=== PATIENT | male | born 1950 | race Caucasian/White ===

== ENCOUNTER 2018-07-13 01:19 | Outpatient (CLI) | payer MEDICARE, MEDICAID, SELFPAY ==
--- NOTE | 2018-07-13 13:00 | DI.CTLCSR_ITS ---
SYMPTOMS/DIAGNOSIS: SOLITARY PULMONARY NODULE, REPEAT LOW DOSE CT, R91.1, TOBACCO USE, Z72.0, SMOKER, F17.[address] FOR LUNG CANCER SCREENING: Low dose screening exam was performed. Comparison is made with June,. There has been no change in a 4 mm nodule just above the right diaphragm , in the right lower lobe. No new nodules are identified. There are no infiltrates, pleural or pericardial effusions or evidence of adenopathy. The visualized portions of the upper abdomen are unremarkable except for a left renal cyst. IMPRESSION: Benign appearance. Continued annual low dose screening CT is recommended. Lung-RAD Category: 2- Benign Appearance/Behavior Lung- RAD Management of Findings: Continue annual LDCT screening in 12 months
== END 2018-07-13 01:39 ==
PROVIDERS: PCP Family Medicine; Visit Provider Family Medicine
DX: R91.1 Solitary pulmonary nodule (principal); F17.210 Nicotine dependence, cigarettes, uncomplicated; Z12.2 Encounter for screening for malignant neoplasm of respiratory organs
CPT/HCPCS: G0297

== ENCOUNTER 2018-12-10 10:07 | Outpatient (CLI) | payer MEDICARE, MEDICAID, SELFPAY ==
--- NOTE | 2018-12-10 10:01 | DI.RAD_ITS ---
SYMPTOMS/DIAGNOSIS: PAIN PELVIS AND LEFT HIP: Joint space narrowing, articular sclerosis and periarticular hypertrophic spurring are demonstrated. Findings consistent with severe DJD.
== END 2018-12-10 10:27 ==
PROVIDERS: PCP Family Medicine; Visit Provider Orthopaedic Surgery
DX: M16.12 Unilateral primary osteoarthritis, left hip (principal); M25.552 Pain in left hip; Z96.641 Presence of right artificial hip joint; Z96.653 Presence of artificial knee joint, bilateral
CPT/HCPCS: 99213; 73502

== ENCOUNTER 2018-12-23 07:20 | Outpatient (REF) | payer MEDICARE, MEDICAID, SELFPAY ==
[2018-12-23 12:37] LABS: Anion Gap 6.6 mmol/L (3-11); BUN 15 mg/dL (7-18); CO2 28.4 mmol/L (21.0-32.0); CREATININE 1.01 mg/dL (0.70-1.30); Chloride 107 mmol/L (98-107); Glucose 104 mg/dL (70-100); Potassium 4.4 mmol/L (3.5-5.1); Sodium 142 mmol/L (136-145)
[2018-12-23 13:15] LABS: Calcium 9.6 mg/dL (8.5-10.1)
== END 2018-12-23 07:40 ==
LOC: NCHCN 07:20
PROVIDERS: PCP Family Medicine; Visit Provider Family Medicine
DX: R03.0 Elevated blood-pressure reading, without diagnosis of hypertension (principal); E66.9 Obesity, unspecified
CPT/HCPCS: 80048

== ENCOUNTER 2019-05-05 13:49 | Outpatient (CLI) | payer MEDICARE, MEDICAID, SELFPAY ==
--- NOTE | 2019-05-05 13:13 | HPE_ITS ---
Assessment and Plan Assessment and plan (1) Arthritis of left hip: Status: Chronic Assessment and plan: Plan: Patient is a reliable historian and denies any areas of skin breakdown along the left posterior leg. Educated patient that if they develop any lesions, redness or skin breakdown to contact office as skin concerns would be a reason to cancel surgery. Patient gives verbal understanding. Educated patient on surgery covering surgical technique via models, recovery process, benefits and risks including but not limited to risk of infection, blood clot, fracture, numbness/tingling, damage to soft tissue/blood vessels/nerves in detail. After discussion patient gives verbal understanding of risks and elects to proceed with scheduling surgery. Patient had opportunity to have questions answered to their satisfaction. They will contact office if issues arise. Patient will continue to be scheduled for left total hip replacement with Dr. Quiroz. History of Present Illness Narrative: Mr. Patel is a 69-year-old male who presents to clinic for pre- operative visit regarding left AIDE with Dr. Quiroz. Patient has been seeing Dr. Quiroz for years and underwent right AIDE in 2017 that has continued to do well. Reports chronic left hip pain located over the anterior groin. Pain is aggravated with walking and stairs. Reports he has tried to treat pain by taking tylenol and celebrix more recently for his pain; oxycodone 5 mg for the last 20 years for chronic back pain. Pain has become more severe over the past year and wishes to have surgery to maintain his lifestyle. Denies any numbness or tingling. Pertinent Surgical Information Review of patient's right hip replacement by Dr. Quiroz on 10/28/16 states components used were: A 54 millimeter diameter press-fit acetabular shell, a 54 x 36 0-degree or neutral polyethylene liner, a size 7 DePuy stem press-fit with a high off-set and a 36 millimeter diameter ceramic femoral head with a +8.5 millimeter neck. Patient reports that he was diagnosed with Lupus only on his skin. As per patient [place] distance [place] [facility] [place] after a skin biopsy; reports has a cream uses PRN. Denies past medical history of: Hypertension, stroke, cardiac issues, angina, asthma, sleep apnea, renal issues, liver issues, hepatitis, gastrointestinal u lcers, bleeding disorders, seizures, migraines, anxiety, depression, diabetes, thyroid issues Denies prior complications from surgery or anesthesia. Review of Systems Constitutional Constitutional: Denies fever(s), Denies frequent falls and Denies headache(s) Eyes Eyes: Denies change in vision ENT Ears, Nose, Mouth, and Throat: Denies dizziness, Denies ear discharge, Denies headache(s), Denies epistaxis, Denies nasal discharge and Denies sore throat Cardiovascular Cardiovascular: Denies chest pain, Denies rapid heart rate, Denies irregular heart rhythm, Denies palpitations, Denies dyspnea, Denies dyspnea on exertion, Denies orthopnea, Denies paroxysmal nocturnal dyspnea and Denies slow heart rate Respiratory Respiratory: Denies cough, Denies dyspnea, Denies dyspnea on exertion and Denies wheezing Gastrointestinal Gastrointestinal: Denies abdominal pain, Denies melena, Denies hematochezia, Denies constipation, Denies diarrhea, Denies nausea and Denies vomiting Genitourinary Genitourinary: Denies hematuria, Denies dysuria and Denies urinary urgency Musculoskeletal Musculoskeletal: Reports as per HPI, Denies numbness and Denies tingling Neurologic Neurologic: Denies dizziness, Denies frequent falls, Denies headache(s), Denies numbness and Denies tingling Psychiatric Psychiatric: Denies anxiety and Denies depression Endocrine Endocrine: Denies palpitations Allergic/Immunologic Allergic/Immunologic: Denies wheezing [facility] Medical History (Updated 05/05/19 @ 13:45 by Oly Valdivia) Chronic back pain (Chronic) COPD (chronic obstructive pulmonary disease) (Chronic) Gastroesophageal reflux disease Hyperlipidemia (Chronic) Smoker (Chronic) Surgical History (Updated 05/05/19 @ 13:24 by Oly Valdivia) Replacement of total knee joint RIGHT Status post left total knee, cemented (Inactive 09/06/13) Status post right hip replacement (Acute) 2016 Dr. Quiroz Status post tonsillectomy (Acute) at 7 yo Social History (Updated 05/05/19 @ 13:26 by Oly Valdivia) Smoking/Tobacco Use Status: Current every day Drug use: Never Meds Home Medications and Allergies Home Medications Medication Instructions Recorded Confirmed Type omeprazole 20 mg PO DAILY tab-cap 11/12/12 12/10/18 History fluticasone propionate [Flovent 2 puff INHALATION DAILY 07/20/13 12/10/18 History 110MCG] levalbuterol tartrate [Xopenex Hfa] 2 puff INHALATION Q4H PRN 07/20/13 12/10/18 History aspirin [Ecotrin Low Strength] 81 mg PO DAILY 09/02/13 12/10/18 History triamcinolone acetonide 1 ea TOPICAL PRN PRN 02/07/14 10/18/16 History celecoxib [Celebrex] 200 mg PO DAILY tab-cap 08/31/15 12/10/18 History cholecalciferol (vitamin D3) 50,000 unit PO twice a week 09/03/16 12/10/18 History alfuzosin 10 mg PO DAILY tab-cap 12/11/17 12/10/18 History atorvastatin 40 mg PO DAILY tab-cap 12/11/17 12/10/18 History nicotine [Nicotrol] 10 mg INHALATION -12/11/17 History cartridges/day PRN #168 cartridge oxycodone-acetaminophen 5 mg-325 1 tab PO DAILY tab 12/10/18 12/10/18 History mg tablet Allergies Allergy/AdvReac Type Severity Reaction Status Date / Time No Known Allergies Allergy Unverified 05/05/19 13:27 Exam Const General: cooperative and no acute distress [facility] Head: normal to inspection, normocephalic and atraumatic Ears: external ears normal General nose exam: external nose normal and no nasal discharge Face and sinus: face symmetric Mouth: oral mucosae normal, lip normal, tongue normal and moist mucous membranes Teeth and gingiva: dentition normal Throat: posterior oropharynx normal Eyes General: appearance normal, both eyes and all related structures Pupils: PERRL EOM: EOM intact bilaterally Neck Neck: trachea midline Carotids: normal carotid upstroke Lymphatic: no lymphadenopathy noted Resp Effort & Inspection: normal respiratory effort and able to speak in complete sentences Auscultation: clear to auscultation bilaterally, no rales, no rhonchi and no wheezes Cardio Heart Sounds: S1 normal, S2 normal and no murmurs Pulses: radial pulses present bilaterally GI Palpation: soft, no hepatosplenomegaly and nontender Auscultation: normal bowel sounds Skin General skin exam: no rashes or lesions noted
[2019-05-05 14:52] LABS: Abs Immature Grans 0.01 k/cumm (0.0-0.09); Absolute Basophil Count 0.06 k/cumm (0.0-0.2); Absolute Eosinophil Count 0.78 k/cumm (0.0-0.7); Absolute Lymphocyte Count 3.22 k/cumm (1.2-3.4); Absolute Monocyte Count 0.57 k/cumm (0.11-0.7); Absolute Neutrophil Count 3.89 k/cumm (1.2-6.7); Basophils % 0.7; Eosinophils % 9.1; HCT 43.3 % (40.0-50.0); HGB 14.9 g/dL (13.5-17.5); Immature Grans % 0.1; Lymphocytes % 37.7; Mean Corp. HGB Concentration 34.4 g/dL (32.0-36.0); Mean Corpuscular Hemoglobin 29.9 pg (27.0-33.0); Mean Corpuscular Volume 86.8 fL (80-95); Monocytes % 6.7; Neutrophils % 45.7; Platelet Count 181 x1000/uL (130-400); RBC 4.99 m/cumm (4.50-6.00); RBC Distribution Width 13.7 % (11.8-14.1); White Blood Cell Count 8.53 k/cumm (4.4-10.8)
== END 2019-05-05 14:09 ==
PROVIDERS: PCP Family Medicine; Visit Provider Orthopaedic Surgery
DX: M25.552 Pain in left hip (principal); M16.12 Unilateral primary osteoarthritis, left hip; Z01.812 Encounter for preprocedural laboratory examination; Z01.818 Encounter for other preprocedural examination; J44.9 Chronic obstructive pulmonary disease, unspecified; F17.200 Nicotine dependence, unspecified, uncomplicated
CPT/HCPCS: 36415; 86850; 86900; 86901; NC; 85025

== ENCOUNTER 2019-05-10 07:14 | Inpatient (IN) | payer MEDICARE, MEDICAID, SELFPAY ==
[2019-05-10] VITALS (12 sets, daily range): BP systolic 83–162; BP diastolic 48–99; PULSE 59–84; RESP 12–21; TEMP 36.2–36.9; O2SAT 92–99
--- NOTE | 2019-05-10 07:42 | DI.RAD_ITS ---
EXAM: XR PELVIS AP INDICATION: check total hip components in RR. COMPARISON: XR hip LT complete AP pelvis from 12/10/2018 TECHNIQUE: 2D digital imaging was performed. FINDINGS: The images reveal a left hip prosthesis in excellent position, surrounding bone intact.
[2019-05-10] MEDS: Lactated Ringers 1,000 ML 80 ML IV ×2 (10:55→17:47)
--- NOTE | 2019-05-10 13:42 | DI.RAD_ITS ---
EXAM: XR HIP LT IN OR INDICATION: ARTHRITIS LEFT HIP,OA LT HIP TECHNIQUE: 2D digital imaging was performed. FINDINGS: Intraoperative images demonstrate left hip, replacement the prosthesis is in excellent position.
[2019-05-10] MEDS: ceFAZolin 2 GM/50 ML BAG IVPB ×2 (14:03→20:33)
--- NOTE | 2019-05-10 17:47 | DI.VRAD_ITS ---
PROCEDURE INFORMATION: Exam: XR Pelvis Exam date and time: 05/10/2019 5:40 PM Clinical history: 69 years old, male; Other: Check totla hip componets in rr TECHNIQUE: Imaging protocol: XR pelvis. Views: 1 or 2 view. COMPARISON: CR XR HIP LT IN OR 05/10/2019 3:50 PM FINDINGS: Bones/joints: Status post bilateral total hip replacement. Bony and metallic alignment appear anatomic. Surgical jacqueline are present adjacent to the left lateral femur with air in the joint space. Soft tissues: Unremarkable. IMPRESSION: Status post left total hip replacement. Bony and metallic alignment appear anatomic. Dictated and Authenticated by: Robert Carreon MD. Ordering:SARA Schultz MD
[2019-05-10] MEDS: oxyCODONE-CR 10 MG TABCR PO (19:29)
[2019-05-10] MEDS: POTASSIUM CHLORIDE/0.9% NACL 1,000 ML 150 MEQ IV (19:29)
[2019-05-10] MEDS: MORPHine 10 MG/ML VIAL IVP (19:30)
[2019-05-10] MEDS: Docusate Sodium 100 MG CAP PO (19:30)
--- NOTE | 2019-05-10 19:39 | NUR.NOTE ---
Nursing Note: Pt arrived from PACU 1825 via bed. Vss, A&O x 4, Sitting up in bed eating dinner within minuets of arrival.
[2019-05-10] MEDS: Ketorolac 30 MG/ML VIAL IVP (22:46)
[2019-05-10] MEDS: Normal Saline Flush 10 ML SYR IV (22:46)
[2019-05-11] MEDS: ceFAZolin 2 GM/50 ML BAG IVPB ×3 (01:34→14:14)
[2019-05-11] MEDS: Acetaminophen 325 MG TAB 650 MG PO (01:34)
[2019-05-11] MEDS: POTASSIUM CHLORIDE/0.9% NACL 1,000 ML 150 MEQ IV ×2 (01:39→08:24)
[2019-05-11] MEDS: Normal Saline Flush 10 ML SYR IV ×3 (04:19→21:30)
[2019-05-11] MEDS: Ketorolac 30 MG/ML VIAL IVP ×4 (04:19→21:31)
[2019-05-11 04:57] VITALS: BP 123/68; PULSE 69; RESP 18; TEMP 36.2; O2SAT 95
[2019-05-11 06:51] LABS: HCT 35.5 % (40.0-50.0); HGB 12.1 g/dL (13.5-17.5); Mean Corp. HGB Concentration 34.1 g/dL (32.0-36.0); Mean Corpuscular Hemoglobin 30.1 pg (27.0-33.0); Mean Corpuscular Volume 88.3 fL (80-95); Mean Platelet Volume 11.5 fL (8.0-11.0); Platelet Count 163 x1000/uL (130-400); RBC 4.02 m/cumm (4.50-6.00); RBC Distribution Width 13.3 % (11.8-14.1); White Blood Cell Count 17.34 k/cumm (4.4-10.8)
[2019-05-11 07:10] VITALS: BP 126/74; PULSE 69; RESP 18; TEMP 37.3; O2SAT 98
[2019-05-11] MEDS: Atorvastatin 40 MG TAB PO (08:18)
[2019-05-11] MEDS: Docusate Sodium 100 MG CAP PO ×3 (08:19→19:37)
[2019-05-11] MEDS: HYDROcodone 5/Acetaminophen 325 TAB PO ×2 (08:19→14:14)
[2019-05-11] MEDS: Aspirin E.C. 81 MG TABEC PO (08:20)
[2019-05-11] MEDS: Multivitamin w/Minerals TAB 1 TAB PO (08:20)
[2019-05-11] MEDS: oxyCODONE-CR 10 MG TABCR PO ×2 (08:20→19:37)
[2019-05-11] MEDS: Pantoprazole 40 MG TABCR PO (08:20)
[2019-05-11] MEDS: Mometasone 220 MCG 14 DOSE INHALER 1 PUFF IH (08:26)
[2019-05-11] MEDS: Mylanta Suspension 30 ML CUP PO (11:41)
[2019-05-11 12:16] VITALS: BP 107/66; PULSE 74; RESP 14; TEMP 37.4; O2SAT 94
[2019-05-11 15:44] VITALS: BP 124/67; PULSE 74; RESP 18; TEMP 36.8; O2SAT 95
--- NOTE | 2019-05-11 16:17 | PT.INTREAT ---
Date of service: 05/11/19 Time of Service: 16:17 PT Notes Inpatient Physical Therapy Treatment Note [facility] Date: 05/11/19 PRECAUTIONS: Fall, WBAT L SUBJECTIVE: Freddie is agreeable to participating in PT. He indicates that he would like to be discharged to home tomorrow. OBJECTIVE: PAIN: Patient c/o posterior hip soreness with transfers and gait training BED MOBILITY/TRANSFERS Supine-sit: I with HOB flat Sit-supine: I with HOB flat Sit-stand: S Stand-sit: S Bed-Chair: S GAIT Assistive Device: FWW Weight bearing: WBAT L Assist: S Distance: 300' Deviation: Step-through, appropriate pacing THEREX: Patient completed a LE strengthening and stabilization program, in a supine position, as per flow sheet. STAIRS: Up/down 3x4 and 2x6 using 1 rail/SPC and a step-to pattern with supervision ASSESSMENT: Patient toelrated session well with minimal c/o L posterior hip soreness with transfers and gait training. He was able to tolerate a progression in gait training, with FWW support and supervision. PLAN: Continue with PT's POC TREATMENT CODE/TIME: 40 minutes; 71079 x2, 11339
--- NOTE | 2019-05-11 16:53 | PGE_ITS ---
Date of Service Date of service: 05/11/19 Time of Service: 16:54 Assessment and Plan Assessment and plan (1) Status post total hip replacement, left: Status: Acute Assessment and plan: Assessment: Stable postop day #1 left total hip replacement. In terms of his mobility, he should be able to go home tomorrow based on what he did today. As long as his pain remains under good control and his hemoglobin does not drop he should be good go tomorrow. Plan: DC his Parra. Check his hemoglobin tomorrow. If he is having no problems I will send him home tomorrow. Subjective Subjective Interval history since last seen: Mauricio feels very good today. Pain is under good control. He insists that he wants to go home tomorrow afternoon around noontime. He says when he first got out of bed today he walked from his room to PT and walked on the couple stairs that they have there. Exam Narrative Exam Narrative: He is afebrile vital signs are stable. Hemoglobin is 12.1 g t his morning. I and O's are good. Parra is in place and draining. He has good active ankle dorsiflexion. He has normal sensation and circulation to the left foot. Objective Objective Clinical Data: Abnormal lab results 05/11/19 Range/Units 06:10 WBC 17.34 H (4.4-10.8) k/cumm RBC 4.02 L (4.50-6.00) m/cumm Hgb 12.1 L (13.5-17.5) g/dL Hct 35.5 L (40.0-50.0) % MPV 11.5 H (8.0-11.0) fL Vital Signs Temperature 36.8 C 05/11/19 15:44 Temperature Source Tympanic 05/11/19 15:44 Pulse 74 05/11/19 15:44 Pulse Rhythm Regular 05/11/19 11:31 Respiratory Rate 18 05/11/19 15:44 Respiratory Effort Non-Labored 05/11/19 11:31 Respiratory Depth Normal 05/11/19 11:31 Respiratory Pattern Normal 05/11/19 11:31 Blood Pressure 124/67 05/11/19 15:44 Pulse Oximetry 95 05/11/19 15:44 Respiratory End-tidal CO2 38 05/10/19 18:04 Oxygen Delivery Method Room Air 05/11/19 15:44 Oxygen Flow Rate 0 05/11/19 15:44 Pain Level 7 05/11/19 16:05 Comment 05/11/19 07:10 Intake & Output 05/10/19 05/11/19 05/11/19 23:59 11:59 23:59 Intake Total 1782 / 1782 2385 / 2625 240 / 2625 Output Total 1075 / 1075 350 / 1125 775 / 1125 Balance 707 / 707 2035 / 1500 -535 / 1500 Intake: IV 1162 / 1162 2024 / 2024 Oral 620 / 620 360 / 600 240 / 600 Output: Urine 375 / 375 350 / 1125 775 / 1125 Estimated Blood Loss 700 / 700 Other: Urine Color Dark Kimberly Straw Light Kimberly Urine Appearance Clear Clear Clear Urine Odor None Comment verbal order for d/c given by Emesis Description None Voiding Methods Indwelling Catheter Laboratory Results WBC 17.34 k/cumm (4.4-10.8) H 05/11/19 06:10 RBC 4.02 m/cumm (4.50-6.00) L 05/11/19 06:10 Hgb 12.1 g/dL (13.5-17.5) L 05/11/19 06:10 Hct 35.5 % (40.0-50.0) L 05/11/19 06:10 MCV 88.3 fL (80-95) 05/11/19 06:10 MCH 30.1 pg (27.0-33.0) 05/11/19 06:10 MCHC 34.1 g/dL (32.0-36.0) 05/11/19 06:10 RDW 13.3 % (11.8-14.1) 05/11/19 06:10 Plt Count 163 x1000/uL (130-400) 05/11/19 06:10 MPV 11.5 fL (8.0-11.0) H 05/11/19 06:10
--- NOTE | 2019-05-11 17:00 | PT.INIE ---
Date of service: 05/11/19 Time of Service: 09:54 PT Notes Inpatient Physical Therapy Evaluation Date: 05/11/2019 Referring Doctor: Antoine Quiroz MD PT Orders: PT Consult: Mobilize post op R THR. Get OOB this afternoon. Weight bearing as tolerated R. Total hip precautions R. Precautions: WBAT R LE. Posterior total hip precautions om L side. PATIENT PROFILE/ADMITTING DIAGNOSIS: Patient is a 66-year-old male patient is a S/P left posterior total hip arthroplasty by Dr. Quiroz on 05/10/2019. PMHX: Medical History (Updated 05/05/19 @ 13:45 by Oly Valdivia) Chronic back pain (Chronic) COPD (chronic obstructive pulmonary disease) (Chronic) Gastroesophageal reflux disease Hyperlipidemia (Chronic) Smoker (Chronic) Surgical History (Updated 05/05/19 @ 13:24 by Oly Valdivia) Replacement of total knee joint on R Status post left total knee, cemented (Inactive 09/06/13) Status post right hip replacement (Acute) 2016 Dr. Quiroz Status post tonsillectomy (Acute) at 7 yo Social History/Home Situation: Lives in a house with 2 steps and railing to enter, flight of steps to the basement he does not use. Lives with significant other Ceceila Melendez who is an RN. Baseline mobility independent gait with no device, independent with ADLS. Equipment owned/DME: Cane, FWW SUBJECTIVE: Patient lying in bed upon arrival of this PT and student PT. Patient denies headache, dizziness, and chest pain throughout PT session. No report of pain but did complain of mild ache on operated site with level surface ambulation and stair negotiation that subsided with rest. OBJECTIVE: General Observation: IV L UE, vazquez catheter, surgical dressing on L hip. Mental Status: A& O x4 Pain: Complained of mild pain with weight bearing ROM: Right Upper Extremity: Shoulder Flexion WFL. Shoulder abduction WFL. Elbow flexion WFL. Wrist flexion WFL. Functional opening and closing of hand WFL. Left Upper Extremity: Shoulder Flexion WFL. Shoulder abduction WFL. Elbow flexion WFL. Wrist flexion WFL. Functional opening and closing of hand WFL. Right Lower Extremity: Hip flexion WFL. Hip abduction WFL. Knee flexion WFL. Ankle dorsiflexion WFL. Ankle plantarflexion WFL. Left Lower Extremity: Hip flexion WFL. Hip abduction WFL. Knee flexion WFL. Ankle dorsiflexion WFL. Ankle plantarflexion WFL. STRENGTH: Right Upper Extremity: Shoulder flexors 5/5. Shoulder abductors 5/5. Elbow flexors 5/5. Elbow extensors 5/5. Pleating Machine Operator strong. Left Upper Extremity: Shoulder flexors 5/5. Shoulder abductors 5/5. Elbow flexors 5/5. Elbow extensors 5/5. Pleating Machine Operator strong. Right Lower Extremity: Hip flexors 5/5. Hip abductors 5/5. Knee flexors 5/5. Knee extensors 5/5. Ankle dorsiflexors 5/5. Ankle plantarflexors 5/5. Left Lower Extremity:Hip flexors NT due to hip precautions. Hip abductors /5. Knee flexors 4/5. Knee extensors 4/5. Ankle dorsiflexors 5/5. Ankle plantarflexors 5/5. BED MOBILITY/TRANSFERS: Supine-sit: Supervision Sit-stand: Supervision Stand-sit: Supervision Bed-chair: Supervision GAIT: SBA with FWW 45 ft x 2, WBATL LE. Step through gait pattern with steady stride and margie. Patient also negotiated three 4 inch steps and two 6 inch steps while holding onto one rail with a step to gait pattern requiring only contact guard assist without complaints of dizziness. No LOB observed. BALANCE: Static sitting: Normal Dynamic Sitting: Normal Static Standing: Good Dynamic Standing: fair SPECIAL TESTS: Mobility Limitations Standardized Measure [facility] AM -PAC ?6 clicks? Basic Mobility Inpatient Short Form: Raw score: 17 CMS score: 51% deficit INFORMED CONSENT/EDUCATION: Patient was instructed in purpose of PT consult and plan of care and is in agreement with plan. ASSESSMENT: Patient is a 66-year-old male patient is a S/P left posterior total hip arthroplasty by Dr. Quiroz on 05/10/2019. Patient presents with clinical signs and symptoms consistent with current/admitting diagnoses that have resulted to mobility limitations, gait instability, generalized weakness, and impairment of motor control as demonstrated by the following impairment level findings: 1. Decreased strength to B LE major muscle groups 2. Impaired sitting/standing balance 3. Impaired activity tolerance 4. Limitation of joint range of motion in L hip Impairments are contributing to the following functional limitations: 1. Dependent bed mobility skills 2. Increased dependence with transfers 3. Inability to safely ambulate without assistive device and physical assistance 4. Increase completion time for mobility ADL performance 5. Increased fall risk 6. Inability to negotiate steps alone safely Patient is assessed as a 89176 complexity based on the following: History: Past medical history significant for COPD, hypertension, and hyperlipidemia Examination:Demonstrable impairment in strength, balance, and range of motion with underlying impairments and functional limitations as documented above Presentation: Evolving Decision Makin moderate complexity GOALS Goals X1 week 1. Supine-Sit independent 2. Sit-Supine independent 3. Sit-Stand independent 4. Stand-Sit independent 5. Bed-Chair independent 6. Chair-Bed independent 7. Independent gait on level surface with use of least restrictive device for at least 300 feet without report of pain nor dyspnea 8. Independent stair negotiation while holding onto bilateral rails for at least 10 steps without report of pain nor dyspnea 9. Independent with home exercise program 10. Good static and dynamic standing balance/tolerance PLAN OF CARE/TREATMENT PLAN: 1-2x/day, 7 days/ week x 1 week Plan of care has been reviewed with the STRUCTURAL ANALYST providing the service under Physical therapy direction. Initiate physical therapy intervention for strengthening, bed mobility, transfers, gait, stairs, balance training, use of assistive device, posterior total hip precautions and home exercise program DISCHARGE RECOMMENDATIONS Patient will benefit from home health PT services in order to progress mobility level using least restrictive assistive ambulatory device, assess home safety, identify additional equipment needs, and establish a functional maintenance program that will increase ability of patient to remain at home. TREATMENT TIME/MINUTES/CODES: 56102 x 36 minutes beginning at 9:54 AM. Thank you very much for this referral. Amelie Flynn PT, DPT, CLT [facility]
[2019-05-11] MEDS: Enoxaparin 40 MG/0.4 ML SYR SC (17:02)
--- NOTE | 2019-05-11 17:10 | ROE_ITS ---
DATE OF PROCEDURE: May 10, 2019 PREOPERATIVE DIAGNOSIS: Osteoarthritis left hip. POSTOPERATIVE DIAGNOSIS: Osteoarthritis left hip. PROCEDURE: Left total hip arthroplasty. COMPONENTS USED: 1. Size 6 DePuy stem. 2. 54 mm acetabular shell. 3. 54 x 36 neutral acetabular polyethylene liner. 4. 36, +8.5 ceramic femoral head. ANESTHESIA: General, Khoa Nieves CRNA SURGEON: Antoine Quiroz M.D. CAP INSPECTOR: Rhett Lackey ESTIMATED BLOOD LOSS: 700 cc's INDICATIONS: This is 69-year-old white male with progressive loss of mobility and increasing pain du e to osteoarthritis of his left hip. He has previously had a successful right total hip replacement two years ago. He's had successful bilateral total knee replacements as well. He has reached the [facility] where he cannot function with activities of daily living because of his left hip pain. Total hip arthroplasty was recommended to alleviate his pain and hopefully restore some of his previous ambula tory abilities. The risks and complications of the procedure have been explained to the patient in d etail preoperatively. PROCEDURE: The patient was taken to the Operating Room on 05/10/19. He was placed supine on the oper ating table and a general anesthetic was administered. He was then turned to the left lateral positi on on the operating table and the position was maintained with a pneumatic beanbag. The left hip was then prepped and draped free in the usual sterile fashion. A posterolateral incision was made, centered over the greater trochanter. The incision was carried t hrough the skin and subcu to the fascia. Subcutaneous veins were cauterized. The iliotibial band an d gluteus fascia were then incised in line with the skin incision. Charnley self-retaining retractor was inserted. The piriformis tendon was identified; a tag suture was placed on the tendon and the t endon was released from the posterior femoral neck with electrocautery. The remainder of the short e xternal rotators was then removed from the posterior femoral neck with electrocautery. A capsular in cision was made as far anterior as possible so that a posterior capsular flap would be available for closure. The femoral head was dislocated. The femoral neck was resected at appropriate angle and le chris, determined by templating, using the oscillating saw. The acetabular exposure was then improved by excising the anterior capsule and then releasing it from the anterior rim of the acetabulum with c urved osteotomes. A large posterior retractor was inserted on the acetabulum to retract the femoral neck. Another posterior retractor was placed to improve exposure. Serial reaming was then carried o ut until there was good rim contact on the acetabulum with a 54 reamer. A 54 mm acetabular shell, po ronald-coated, was then impacted into the prepared acetabulum until fully seated. An excellent press f it was obtained. The press fit was supplemented by one screw through the acetabulum. The center hol e in the acetabular shell was filled with a so-called manhole cover. The actual liner, 36 x 54, was then placed in the acetabular shell, rotated into alignment and then impacted into place with the imp actor and mallet. The femoral canal was then serially reamed with straight reamers up to a size 6. The canal was then serially broached. I could fit a size 6 broach; however when I attempted to broach with a size 7, th e broach remained proud by probably an inch and a half. I therefore inserted the 6 broach as a trial and used trial with a high-offset head and a +8.5 trial 36 head. The trial component was then reduc ed into the acetabular component and an intraoperative AP x-ray was obtained. The x-ray showed that limb lengths were maintained with a +8.5 and the acetabular shell appeared to be in good position an d there was good fit and fill in the femoral canal with a size 6 broach. The trial components were t hen dislocated from the acetabulum and then removed. An actual size 6 stem, proximal, porous-coated, was then impacted into place. Care was taken to position the femoral component in proper anteversio n until it was fully seated. There was an excellent press fit obtained with no motion of the stem. A 36, +8.5 ceramic femoral head was then placed onto the trunion of the stem and impacted into place with the impactor and mallet. The femoral component was reduced into the acetabulum. Range of motio n was checked at this point. The hip was stable to 90 degrees of flexion and at least 80 degrees of internal rotation. It was also stable with external rotation in extension. The left thigh was abduc eduard and placed on a Deal stand. The wound was irrigated with tranexamic acid, 2 grams in 150 cc's of saline solution. It was allowed to stay in the wound for a minute before suctioning. The patient r eceived an additional 2 grams of tranexamic acid IV before making the incision. The wound was then i rrigated with Betadine and saline solution. I allowed the Betadine to stay in the wound for 60 secon ds before suctioning. The wound margins were infiltrated with 0.5% Marcaine with an epinephrine solu tion. Good hemostasis was obtained at the conclusion of the procedure. All obvious bleeders were ca uterized. Two drill holes were placed on the posterior greater trochanter and sutures of #2 FiberWir e were passed to the leading edge of the posterior capsular flap and they were passed through these d rill holes and sutures were tied over the drill holes with the hip externally rotated, bringing the p osterior capsular flap down to bone. The piriformis tendon was then reattached to the abductor tendo n at the tip of the trochanter with interrupted #2 FiberWire sutures. The iliotibial band and gluteu s fascia were approximated with interrupted [id number] sutures of #1 Vicryl suture material. Th e subcu was approximated with interrupted #2-0 Vicryl sutures. The skin edges were approximated with skin jacqueline. Sterile dressings were applied, followed by a light compressive dressing to the left lateral hip. The patient was turned supine, an abductor pillow was placed between his legs and he wa s transferred to the recovery room in good condition. The patient experienced no intraoperative comp lications.
--- NOTE | 2019-05-11 18:12 | PDOC.CMIN ---
- If Service Date Differs Date of service: 05/11/19 Time of Service: 18:12 Care Management Initial Assess REASON FOR HOSPITALIZATION:: Post Op Left Total Hip PAST MEDICAL HISTORY/PAST SURGICAL HISTORY:: Medical History. Chronic back pain (Chronic). COPD (chronic obstructive pulmonary disease) (Chronic). Gastroesophageal reflux disease. Hyperlipidemia (Chronic). Smoker (Chronic). Surgical History. Replacement of total knee joint. RIGHT. Status post left total knee, cemented (Inactive 09/06/13). Status post right hip replacement (Acute). 2017. Dr. Quiroz. Status post tonsillectomy (Acute). at 7 yo PREVIOUS FUNCTIONAL STATUS/SOCIAL/FAMILY SUPPORTS:: Mauricio lives in [place] with his significant other, Cecelia, who is a nurse. 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 He is independent at baseline. CURRENT FUNCTIONAL STATUS:: Mauricio was lying in bed during the conversation with CM. He stated that he has very little pain. He reported that he has worked with PT, and that he has five stairs at home that he needs to maneuver. He stated that he has had both knees replaced and the other hip replaced, so he is familiar with the recovery. He requested crutches and HH PT. CM will follow. ADVANCE DIRECTIVES:: None on file. Has patient been provided with information about the portal?: Yes Did the patient sign up for the portal?: No CODE STATUS:: Full Code INSURANCE COVERAGE / FINANCIAL ISSUES:: [facility] CURRENT HOME/COMMUNITY SERVICES/EQUIPMENT:: Mauricio has a FWW at home from previous surgeries. No other services at this time. PRIMARY CARE PHYSICIAN:: Lizeth Spain POTENTIAL DISCHARGE NEEDS:: Evaluations for further needs, follow up appointments. Home Health PT and crutches were requested by Mauricio. PATIENT/FAMILY EDUCATION NEEDS:: Review of community based supports, discharge plan, discussion of self care needs including Ask Me Three ANTICIPATED BARRIERS TO DISCHARGE:: None identified at this time. TRANSPORTATION:: Mauricio will be transported home via private vehicle driven by his SO, Cecelia. PLAN:: Anticipate Mauricio will return home when medically ready. PT to evaluate for crutches as well as need for HH PT. Mauricio's SO Cecelia will drive him home when ready. CM will follow.
[2019-05-11 20:06] VITALS: BP 145/73; PULSE 72; RESP 17; TEMP 37.2; O2SAT 96
[2019-05-12] VITALS: BP 123/77; PULSE 78; RESP 16; TEMP 37.5; O2SAT 93
[2019-05-12 05:00] VITALS: PULSE 78; RESP 16; TEMP 36.6; O2SAT 97
[2019-05-12] MEDS: Normal Saline Flush 10 ML SYR IV (05:04)
[2019-05-12] MEDS: Ketorolac 30 MG/ML VIAL IVP (05:04)
[2019-05-12] MEDS: HYDROcodone 5/Acetaminophen 325 TAB PO ×2 (06:21→11:59)
[2019-05-12 07:14] LABS: HGB 11.9 g/dL (13.5-17.5); Mean Corpuscular Volume 88.2 fL (80-95); Mean Platelet Volume 11.5 fL (8.0-11.0); Platelet Count 151 x1000/uL (130-400); RBC 3.97 m/cumm (4.50-6.00); RBC Distribution Width 13.7 % (11.8-14.1); White Blood Cell Count 11.76 k/cumm (4.4-10.8)
[2019-05-12 07:44] VITALS: BP 109/65; PULSE 70; RESP 18; TEMP 38.1; O2SAT 97
[2019-05-12] MEDS: Atorvastatin 40 MG TAB PO (08:17)
[2019-05-12] MEDS: Docusate Sodium 100 MG CAP PO (08:17)
[2019-05-12] MEDS: oxyCODONE-CR 10 MG TABCR PO (08:17)
[2019-05-12] MEDS: Multivitamin w/Minerals TAB 1 TAB PO (08:17)
[2019-05-12] MEDS: Pantoprazole 40 MG TABCR PO (08:17)
[2019-05-12] MEDS: Aspirin E.C. 81 MG TABEC PO (08:17)
--- NOTE | 2019-05-12 08:33 | DSE_ITS ---
Date of service: 05/12/19 Time of Service: 08:34 DS: Diagnosis Discharge Diagnosis (1) Status post total hip replacement, left: Status: Acute Discharge Plan Disposition Patient Disposition: HOME Condition: Good Discharge Details Reason For Visit: POST-OP L TOTAL HIP Admit Date/Time: 05/10/19 07:14 Admit Provider: Antoine Quiroz Attending Provider: Antoine Quiroz Primary Care Provider: Lizeth Spain [facility] Course Hospital Course: The patient was taken to the operating room on the day of admission 05/10/2019 where he underwent a left total hip replacement without complications. Postoperatively he was mobilized per protocol with physical therapy. He achieved a full independence with transfers and climbing stairs by 05/12/2019. He remained afebrile throughout his postoperative course. Hemoglobin stabilized at 11.9 g on 05/12/2019. By 05/12/2019 he was taking only p.o. pain meds with good control. He wished to be discharged home at that time. I felt that he had achieved all acute care goals and was ready for discharge. Home Meds and New Rx's Prescriptions: New oxycodone-acetaminophen 5-325 mg tablet 1 tab PO Q4H PRN (Reason: pain) Qty: 20 RF: 0 celecoxib 200 mg capsule 200 mg PO BID Qty: 30 RF: 0 No Action oxycodone-acetaminophen [Percocet] 5-325 mg tablet 1 tab PO DAILY RF: 0 omeprazole 20 MG capsule,delayed release(DR/EC) 20 mg PO DAILY RF: 0 celecoxib [Celebrex] 200 MG capsule 200 mg PO DAILY RF: 0 cholecalciferol (vitamin D3) 50,000 UNIT capsule 50,000 unit PO DAILY RF: 0 Nicotrol 10 MG cartridge 10 mg Inhalation 6-16 cartridges/day PRNQty: 168 RF: 0 atorvastatin 40 MG tablet 40 mg PO DAILY RF: 0 alfuzosin 10 MG tablet extended release 24 hr 10 mg PO DAILY RF: 0 Flovent HFA 120 PUFF HFA aerosol inhaler 2 puff Inhalation DAILY RF: 0 levalbuterol tartrate [Xopenex HFA] 15 GM HFA aerosol inhaler 2 puff Inhalation Q4H PRNRF: 0 aspirin [Ecotrin Low Strength] 81 MG tablet,delayed release (DR/EC) 81 mg PO DAILY RF: 0 triamcinolone acetonide 15 GM cream 1 ea Topical PRN PRNRF: 0 naproxen sodium [Aleve] 220 mg Capsule 220 mg PO DAILY RF: 0 betamethasone dipropionate 0.05 % Cream TOPICAL RF: 0 Discharge Instructions Additional Instructions: Walk every day as much as pain allows. Use crutches or walker as long as you limp. Use elastic stockings during the daytime only for the next 2 weeks. Take 1 baby aspirin(81 mg) twice a day for 30 days to prevent blood clots in the legs. May shower and get the jacqueline wet tomorrow. Cover the jacqueline with light gauze after showering so the jacqueline do not catch on your hands. Follow total hip precautions for the next 6 weeks. Take Celebrex that was prescribed 200 mg twice a day for 15 days to decrease swelling and inflammation. Take oxycodone for breakthrough pain if needed. Follow-up with Dr. Quiroz in 2 weeks. Total hip precautions instruction sheet. Stand Alone Forms: Consent for a Minor Procedure Referrals: Antoine Quiroz MD [ [facility] STAFF PHYSICIAN] - (f/u in 2 weeks.) Activity:: total hip precautions Equipment/Supplies:: Walker Diet:: As Tolerated Discharge Orders Discharge Orders: Discharge Order (Routine); Ordered 05/12/19 Ordered By: Antoine Quiroz DS: Summary Status at Discharge Functional status at discharge: independent ambulation Overall status at discharge: patient is back to baseline Mental Status: mental status grossly normal Speech and Movement: speech and movement normal Mood: congruent mood Affect: normal affect Exam Psych Mental Status: mental status grossly normal Speech and Movement: speech and movement normal Mood: congruent mood Affect: normal affect DS: Data Vitals/I&O Vitals and I&O: Vital Signs Temperature 36.6 C 05/12/19 05:00 Temperature Source Tympanic 05/12/19 05:00 Pulse 78 05/12/19 05:00 Pulse Rhythm Regular 05/11/19 20:09 Respiratory Rate 16 05/12/19 05:00 Respiratory Effort Non-Labored 05/12/19 03:00 Respiratory Depth Normal 05/12/19 03:00 Respiratory Pattern Normal 05/12/19 03:00 Blood Pressure 123/77 05/12/19 00:00 Pulse Oximetry 97 05/12/19 05:00 Respiratory End-tidal CO2 38 05/10/19 18:04 Oxygen Delivery Method Room Air 05/12/19 05:00 Oxygen Flow Rate 0 05/12/19 05:00 Pain Level 7 05/12/19 08:17 Comment 05/11/19 07:10 Intake & Output 05/11/19 05/11/19 05/12/19 11:59 23:59 11:59 Intake Total 3300 / 4090 790 / 4090 250 / 250 Output Total 350 / 1500 1150 / 1500 500 / 500 Balance 2950 / 2590 -360 / 2590 -250 / -250 Intake: IV 2940 / 3000 60 / 3000 Oral 360 / 1090 730 / 1090 250 / 250 Output: Urine 350 / 1500 1150 / 1500 500 / 500 Other: Urine Color Straw Light Kimberly Urine Appearance Clear Clear Urine Odor None Comment verbal order for d/c given by MD Voiding Methods Urinal Urinal Data Completed and Pending Labs on day of discharge: Labs from last 24 hours 05/12/19 06:37 WBC 11.76 H D RBC 3.97 L Hgb 11.9 L Hct 35.0 L MCV 88.2 MCH 30.0 MCHC 34.0 RDW 13.7 Plt Count 151 MPV 11.5 H PFSH Medical History (Updated 05/10/19 @ 10:10 by Richelle Dubois) Chronic back pain (Chronic) COPD (chronic obstructive pulmonary disease) (Chronic) Gastroesophageal reflux disease Hyperlipidemia (Chronic) Lupus (Acute) pt. reports it affects his skin only Smoker (Chronic) Surgical History (Updated 05/11/19 @ 16:56 by Antoine Quiroz MD) Hx of colonoscopy (Chronic) Hx of esophagogastroduodenoscopy (Chronic) Replacement of total knee joint RIGHT Status post left total knee, cemented (Inactive 09/06/13) Status post right hip replacement (Acute) 2016 Dr. 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
[2019-05-12 09:18] VITALS: TEMP 37.8
[2019-05-12] MEDS: Mometasone 220 MCG 14 DOSE INHALER 1 PUFF IH (10:30)
--- NOTE | 2019-05-12 10:43 | PT.INTREAT ---
Date of service: 05/12/19 Time of Service: 10:43 PT Notes Inpatient Physical Therapy Treatment Note [facility] Date: 05/12/19 PRECAUTIONS: WBAT L SUBJECTIVE: Freddie states that he is feeling pretty good and is ready to discharge to home today. He states that he has been up, transferring and ambulating independently within his room. OBJECTIVE: PAIN: No c/o pain BED MOBILITY/TRANSFERS Sit-stand: I Stand-sit: I GAIT Assistive Device: FWW Weight bearing: WBAT L Assist: S Distance: 300' Deviation: Step-through THEREX: Patient completed a LE strengthening program, in both seated and standing positions, as per flow sheet. STAIRS: Up/down 3x4 and 2x6 using 1 rail/SPC and a step-to pattern with supervision ASSESSMENT: Patient tolerated session well without complaint. He was able to tolerate gait training, stair training, and ther ex without complaint of pain. PLAN: Continue with PT's POC TREATMENT CODE/TIME: 25 minutes; [id number], [id number]
[2019-05-12 11:35] VITALS: BP 129/82; PULSE 74; RESP 17; TEMP 37.4; O2SAT 96
--- NOTE | 2019-05-12 14:58 | CHAPLAIN ---
I had a short visit with Mauricio who is being discharged later today to his home in [place]. Mauricio said he has had both knees replaced and this is his second hip replacement so he knew what he was getting into. He expects to be feeling stronger and more pain-free after getting through the recovery process.
--- NOTE | 2019-05-12 16:05 | PDOC.CMDIS ---
- If Service Date Differs Date of service: 05/12/19 Time of Service: 16:05 LACE Index Scoring Tool - Questions: Length of Stay (in days): 3 Acuity (Admit via E.D.?): No Comorbidities: Chronic Pulmonary Disease E.D. Visits: 0 - Answers: Total Score: 5 Risk of Readmission: Low Risk Care Management Discharge Reason for Hospitalization: Post Op Left Total Hip Discharge Plan: Mauricio will return home with no additional services at this time. He has his own FWW. Follow up with Dr. Quiroz in two weeks. He will be transported home via private vehicle by his SO, Cecelia. Patient/Family Education Needs: Review discharge instructions regarding medication and activity levels, discussion of self care needs including 'ask me three'
--- NOTE | 2019-05-12 16:08 | PT.INDS ---
Date of service: 05/12/19 Time of Service: 16:09 PT Notes Inpatient Physical Therapy Discharge Summary Dates: 05/12/2019 Dates of Service: 05/11/2019 and 05/12/2019 This is a clinical summary of care provided on the duration of dates listed above. No charge was made in the completion of this documentation. Referring Doctor: Antoine Quiroz MD PT Orders: PT Consult: Mobilize post op R THR. Get OOB this afternoon. Weight bearing as tolerated R. Total hip precautions R. Precautions: WBAT R LE. Posterior total hip precautions om L side. PATIENT PROFILE/ADMITTING DIAGNOSIS: Patient is a 66-year-old male patient is a S/P left posterior total hip arthroplasty by Dr. Quiroz on 05/10/2019. PMHX: Medical History (Updated 05/05/19 @ 13:45 by Oly Valdivia) Chronic back pain (Chronic) COPD (chronic obstructive pulmonary disease) (Chronic) Gastroesophageal reflux disease Hyperlipidemia (Chronic) Smoker (Chronic) Surgical History (Updated 05/05/19 @ 13:24 by Oly Valdivia) Replacement of total knee joint on R Status post left total knee, cemented (Inactive 09/06/13) Status post right hip replacement (Acute) 2016 Dr. Quiroz Status post tonsillectomy (Acute) at 7 yo Social History/Home Situation: Lives in a house with 2 steps and railing to enter, flight of steps to the basement he does not use. Lives with significant other Cecelia Melendez who is an RN. Baseline mobility independent gait with no device, independent with ADLS. Equipment owned/DME: Cane, FWW SUBJECTIVE: NT. Please see PT notes on 05/12/2019. OBJECTIVE: General Observation: NT. Please see PT notes on 05/12/2019. Mental Status: NT. Please see PT notes on 05/12/2019. Pain: NT. Please see PT notes on 05/12/2019. ROM: Right Upper Extremity: Shoulder Flexion WFL. Shoulder abduction WFL. Elbow flexion WFL. Wrist flexion WFL. Functional opening and closing of hand WFL. Left Upper Extremity: Shoulder Flexion WFL. Shoulder abduction WFL. Elbow flexion WFL. Wrist flexion WFL. Functional opening and closing of hand WFL. Right Lower Extremity: Hip flexion WFL. Hip abduction WFL. Knee flexion WFL. Ankle dorsiflexion WFL. Ankle plantarflexion WFL. Left Lower Extremity: Hip flexion WFL. Hip abduction WFL. Knee flexion WFL. Ankle dorsiflexion WFL. Ankle plantarflexion WFL. STRENGTH: Right Upper Extremity: Shoulder flexors 5/5. Shoulder abductors 5/5. Elbow flexors 5/5. Elbow extensors 5/5. Supervisor Electric strong. Left Upper Extremity: Shoulder flexors 5/5. Shoulder abductors 5/5. Elbow flexors 5/5. Elbow extensors 5/5. Supervisor [employer] strong. Right Lower Extremity: Hip flexors 5/5. Hip abductors 5/5. Knee flexors 5/5. Knee extensors 5/5. Ankle dorsiflexors 5/5. Ankle plantarflexors 5/5. Left Lower Extremity:Hip flexors NT due to hip precautions. Hip abductors /5. Knee flexors 4/5. Knee extensors 4/5. Ankle dorsiflexors 5/5. Ankle plantarflexors 5/5. BED MOBILITY/TRANSFERS: Supine-sit: Supervision Sit-stand: Supervision Stand-sit: Supervision Bed-chair: Supervision GAIT: Supervision with level surface ambulation of up to 300 feet using FWW per PT note on 05/12/2019. BALANCE: Static sitting: Normal Dynamic Sitting: Normal Static Standing: Good Dynamic Standing: fair ASSESSMENT: Patient is a 66-year-old male patient is a S/P left posterior total hip arthroplasty by Dr. Quiroz on 05/10/2019. Patient continues to presents with clinical signs and symptoms consistent with current/admitting diagnoses that have resulted to mobility limitations, gait instability, generalized weakness, and impairment of motor control as demonstrated by the following impairment level findings: 1. Decreased strength to B LE major muscle groups 2. Impaired sitting/standing balance 3. Impaired activity tolerance 4. Limitation of joint range of motion in L hip due to continued movement precautions Impairments are contributing to the following functional limitations: 1. Inability to safely ambulate without assistive device and physical assistance 2. Increase completion time for mobility ADL performance 3. Increased fall risk 4. Inability to negotiate steps alone safely GOALS Goals X1 week 1. Supine-Sit independent NOT MET 2. Sit-Supine independent NOT MET 3. Sit-Stand independent NOT MET 4. Stand-Sit independent NOT MET 5. Bed-Chair independent NOT MET 6. Chair-Bed independent NOT MET 7. Independent gait on level surface with use of least restrictive device for at least 300 feet without report of pain nor dyspnea NOT MET 8. Independent stair negotiation while holding onto bilateral rails for at least 10 steps without report of pain nor dyspnea NOT MET 9. Independent with home exercise program NOT MET 10. Good static and dynamic standing balance/tolerance NOT MET DISCHARGE RECOMMENDATIONS: Patient will benefit from home health PT services in order to progress mobility level using least restrictive assistive ambulatory device, assess home safety, identify additional equipment needs, and establish a functional maintenance program that will increase ability of patient to remain at home. TREATMENT TIME/MINUTES/CODES: NC. Thank you very much for this referral. Amelie Flynn PT, DPT, CLT [facility]
== END 2019-05-12 13:57 | disposition home or self-care (01) | DRG 470 ==
LOC: PDS 07:14 → MS 17:04
PROVIDERS: Admitting Provider Orthopaedic Surgery; PCP Family Medicine; Visit Provider Orthopaedic Surgery
PROC: 0SRB04A Replacement of Left Hip Joint with Ceramic on Polyethylene Synthetic Substitute, Uncemented, Open Approach (ICD-10-PCS; CPT 27130; principal; 2019-05-10 09:00)
DX: M16.12 Unilateral primary osteoarthritis, left hip (principal); M25.552 Pain in left hip; Z96.642 Presence of left artificial hip joint; Z96.641 Presence of right artificial hip joint; J44.9 Chronic obstructive pulmonary disease, unspecified; K21.9 Gastro-esophageal reflux disease without esophagitis; E78.5 Hyperlipidemia, unspecified; F17.210 Nicotine dependence, cigarettes, uncomplicated
CPT/HCPCS: 27130; 36415; 85027; 94640; 97110; 97162; 97530; J1650; NC; 72170; 73501; J0131; J0690; J1100; J1885; J2270; J2405; L1686

== ENCOUNTER 2019-05-26 15:38 | Outpatient (CLI) | payer MEDICARE, MEDICAID, SELFPAY ==
--- NOTE | 2019-05-26 11:45 | DI.RAD_ITS ---
EXAM: XR HIP LT COMPLETE AP PELVIS INDICATION: first post-op visit s/p left AIDE. COMPARISON: XR PELVIS AP from 05/10/2019 TECHNIQUE: 2D digital imaging was performed. FINDINGS: There has been no change in the bilateral hip prostheses. No abnormal bony lucencies are seen.
== END 2019-05-26 15:58 ==
PROVIDERS: PCP Family Medicine; Referring Provider Family Medicine; Visit Provider Orthopaedic Surgery
DX: Z96.643 Presence of artificial hip joint, bilateral (principal); Z47.1 Aftercare following joint replacement surgery; J44.9 Chronic obstructive pulmonary disease, unspecified; F17.210 Nicotine dependence, cigarettes, uncomplicated
CPT/HCPCS: 73502

== ENCOUNTER → 2019-06-30 11:17 | Outpatient (BNVA) | payer MEDICARE, MEDICAID, SELFPAY | PROVIDERS: PCP Family Medicine; Referring Provider Family Medicine; Visit Provider Orthopaedic Surgery | DX: Z47.1 Aftercare following joint replacement surgery (principal); Z96.642 Presence of left artificial hip joint; J44.9 Chronic obstructive pulmonary disease, unspecified; F17.210 Nicotine dependence, cigarettes, uncomplicated ==

== ENCOUNTER 2019-07-16 01:44 | Outpatient (CLI) | payer MEDICARE, MEDICAID, SELFPAY ==
--- NOTE | 2019-07-16 12:45 | DI.CTLCSR_ITS ---
EXAM: CT CHEST LUNG CANCER SCREEN CLINICAL HISTORY: CIGARETTE SMOKER, F17.210, SOLITARY PULMONARY NODULE, R91.1 TECHNIQUE: CT examination of the chest was performed utilizing low-dose lung cancer screening protoc . COMPARISON: MRI - LUMBAR SPINE WO CONTRAST from 02/17/2014 CHEST - LUNG CANCER SCREENING from 07/09/2017 CT CHEST LUNG CANCER SCREEN from 07/13/2018 FINDINGS: Images obtained through the upper abdomen show low attenuation left renal masses consistent with cyst s, ultrasound correlation recommended. Previously described 4 millimeter in diameter right pleural-based nodule located at the dome of the d iaphragm is unchanged from prior CT June 2018. No new intrapulmonary nodule seen. No mediastina l or hilar adenopathy. Tracheobronchial tree appears intact. IMPRESSION: Category 2 benign appearance or behavior. Continue annual screening with LD CT in 12 months. Left renal mass is noted probably cystic, renal ultrasound requested for confirmation to exclude neop lastic process. BI-RADS Cat 2 - Benign Findings
== END 2019-07-16 02:04 ==
PROVIDERS: PCP Family Medicine; Visit Provider Family Medicine
DX: Z12.2 Encounter for screening for malignant neoplasm of respiratory organs (principal); F17.210 Nicotine dependence, cigarettes, uncomplicated; R91.1 Solitary pulmonary nodule; N28.1 Cyst of kidney, acquired
CPT/HCPCS: G0297

== ENCOUNTER 2019-07-27 01:07 | Outpatient (CLI) | payer MEDICARE, MEDICAID, SELFPAY ==
--- NOTE | 2019-07-27 15:44 | DI.US_ITS ---
EXAM: US RENAL CLINICAL HISTORY: RENAL CYSTIC DISEASE, Q61.9, RECENT CT SCAN LUNGS SHOWEDRENAL CYSTS TECHNIQUE: Ultrasound performed using standard protocol. COMPARISON: CT CHEST LUNG CANCER SCREEN from 07/16/2019 FINDINGS: The right kidney measures 11.3 centimeters long. No renal mass, calculus or obstruction is identifie d. No right renal cysts are present. There is normal blood flow to the right kidney. The left kidney measures 13.1 centimeters. No renal calculus or obstruction is identified. There ar e 2 renal cysts. They are simple in size. The largest is in the midpole and measures 6.1 x 4.8 x 5. 9 centimeters. The smaller is in the lower pole and measures 4.6 x 5.0 x 4.8 centimeters. There is a hypoechoic lesion at the superior pole measuring 2.1 x 2.2 x 1.7 centimeters. It does not appear t o satisfy the criteria for A simple cyst sonographically. Bladder was inadequately filled and cannot be evaluated adequately. IMPRESSION: 1. Simple left renal cyst. 2. Hypoechoic lesion in the superior pole. It does not meet the definite sonographic criteria for si mple cyst. A CT or MRI of the abdomen is recommended for further evaluation.
== END 2019-07-27 01:27 ==
PROVIDERS: PCP Family Medicine; Visit Provider Family Medicine
DX: N28.1 Cyst of kidney, acquired (principal); N28.89 Other specified disorders of kidney and ureter
CPT/HCPCS: 76770

== ENCOUNTER 2019-08-26 13:23 | Outpatient (REF) | payer MEDICARE, MEDICAID, SELFPAY ==
[2019-08-26 14:05] LABS: ALT 32 U/L (16-63); AST 19 U/L (15-37); Albumin 3.9 g/dL (3.4-5.0); Alkaline Phosphatase 118 U/L (46-116); Anion Gap 9.1 mmol/L (3-11); BUN 15 mg/dL (7-18); Bilirubin, Total 0.8 mg/dL (0.2-1.0); CO2 27.9 mmol/L (21.0-32.0); CREATININE 1.09 mg/dL (0.70-1.30); Calcium 9.3 mg/dL (8.5-10.1); Calculated LDL 59 mg/dL; Chloride 109 mmol/L (98-107); Cholesterol 116 mg/dL (<200); Glucose 99 mg/dL (74-106); HDL Cholesterol 34 mg/dL (40-60); Potassium 4.2 mmol/L (3.5-5.1); Sodium 146 mmol/L (136-145); Total Protein 7.2 g/dL (6.4-8.2); Triglyceride 115 mg/dL (<150)
[2019-08-26 14:07] LABS: Hemoglobin A1C 6.2 % (3.8-5.6)
== END 2019-08-26 13:43 ==
LOC: NCHCN 13:23
PROVIDERS: PCP Family Medicine; Visit Provider Family Medicine
DX: E78.5 Hyperlipidemia, unspecified (principal); R73.03 Prediabetes; Q61.9 Cystic kidney disease, unspecified
CPT/HCPCS: 80053; 80061; 83036

== ENCOUNTER → 2019-08-31 10:48 | Outpatient (BNVA) | payer MEDICARE, MEDICAID, SELFPAY | PROVIDERS: PCP Family Medicine; Referring Provider Family Medicine; Visit Provider Orthopaedic Surgery | DX: M70.62 Trochanteric bursitis, left hip; Z96.642 Presence of left artificial hip joint; J44.9 Chronic obstructive pulmonary disease, unspecified; F17.210 Nicotine dependence, cigarettes, uncomplicated | CPT/HCPCS: 99213 ==

== ENCOUNTER → 2019-09-28 10:43 | Outpatient (BNVA) | payer MEDICARE, MEDICAID, SELFPAY | PROVIDERS: PCP Family Medicine; Referring Provider Family Medicine; Visit Provider Orthopaedic Surgery | DX: M70.62 Trochanteric bursitis, left hip; Z96.642 Presence of left artificial hip joint; Z47.1 Aftercare following joint replacement surgery; J44.9 Chronic obstructive pulmonary disease, unspecified; F17.210 Nicotine dependence, cigarettes, uncomplicated | CPT/HCPCS: 99213 ==

== ENCOUNTER 2019-10-06 02:22 | Outpatient (CLI) | payer MEDICARE, MEDICAID, SELFPAY ==
--- NOTE | 2019-10-06 | DI.CT_ITS ---
EXAM: CT ABDOMEN WO/W CLINICAL HISTORY: RENAL CYSTIC DISEASE Q61.9 TECHNIQUE: Imaging Protocol: Axial computed tomography images with coronal and sagittal reformatted images were created and reviewed CONTRAST MATERIAL: Intravenous: Omnipaque 350 Contrast volume:100 mL Oral: Yes COMPARISON: US RENAL from 07/27/2019 FINDINGS: ABDOMEN: Lung Bases: No acute pulmonary process. Liver: Normal density. No measurable mass. Portal, Superior Mesenteric, and Splenic Veins: Unremarkable. Gallbladder and Biliary Tract: No radiodense calculus or dilation. Pancreas: Normal density, no abnormal calcifications or inflammatory process. Spleen: Normal. Adrenals: There is a 1.3 cm fat density right adrenal mass present. There are associated calcificati ons seen peripherally. The finding is most consistent with a myelolipoma. The left adrenal gland is unremarkable. Kidneys: Normal size, contour and axis. No radiodense stones or obstructive uropathy. There are tiny hypodensities seen in the right kidney. They are too small for further characterization but likely r eflect small cysts. There are multiple simple cysts seen in the right kidney. The largest is seen i n the superior pole and measures 6.9 x 6.2 cm. There is no solid renal mass present. Abdominal Aorta: Abdominal portion non-dilated. Atherosclerosis. Bowel: No obstruction or bowel wall thickening. Small hiatal hernia. Peritoneal Cavity: No ascites, collection or mesenteric inflammatory response. Lymph Nodes: Within normal limits. Bones: Degenerative changes. Soft Tissues: Unremarkable. IMPRESSION: 1. Multiple simple left renal cysts. No solid renal mass. 2. 1.3 cm fat density right adrenal mass most consistent with a myelolipoma. DATA REPOSITORY: All CT scans at this facility are submitted to the National Radiology Data Registry (NRDR) Dose Index Registry (DIR) with the [employer] (ACR). RADIATION OPTIMIZATION: All CT scans at this facility use at least one of these dose optimization te chniques: automated exposure control; mA and/or kV adjustment per patient size (includes targeted exa ms where dose is matched to clinical indication); or iterative reconstruction.
[2019-10-06] MEDS: Breeza Beverage 473 ML BTL PO ×2 (10:02→10:03)
[2019-10-06] MEDS: Omnipaque 350 MG/ML 100 ML BTL IJ (10:03)
[2019-10-06] MEDS: Omnipaque 350 MG/ML 50 ML BTL PO (10:03)
[2019-10-06] MEDS: Normal Saline - Diluent 50 ML VIAL IV (10:04)
[2019-10-06] MEDS: Normal Saline Flush 10 ML SYR IVP (10:04)
== END 2019-10-06 02:42 ==
PROVIDERS: PCP Family Medicine; Visit Provider Family Medicine
DX: N28.1 Cyst of kidney, acquired (principal); E27.8 Other specified disorders of adrenal gland
CPT/HCPCS: 74170; J3490; Q9967

== ENCOUNTER 2019-12-07 16:55 | Outpatient (CLI) | payer MEDICARE, MEDICAID, SELFPAY ==
[2019-12-08 10:32] LABS: COVID-19 RT-PCR Result Negative (Negative)
== END 2019-12-07 17:15 ==
PROVIDERS: PCP Family Medicine; Visit Provider Physician Assistant
DX: J02.9 Acute pharyngitis, unspecified (principal)
CPT/HCPCS: U0003

== ENCOUNTER 2019-12-27 21:49 | Outpatient (REF) | payer MEDICARE, MEDICAID, SELFPAY ==
[2019-12-27 21:47] LABS: Anion Gap 8.8 mmol/L (3-11); BUN 16 mg/dL (7-18); CO2 27.2 mmol/L (21.0-32.0); CREATININE 1.09 mg/dL (0.70-1.30); Calcium 9.5 mg/dL (8.5-10.1); Chloride 106 mmol/L (98-107); Glucose 96 mg/dL (74-106); Potassium 4.4 mmol/L (3.5-5.1); Sodium 142 mmol/L (136-145)
== END 2019-12-27 22:09 ==
LOC: NCHCN 21:49
PROVIDERS: PCP Family Medicine; Visit Provider Family Medicine
DX: R03.0 Elevated blood-pressure reading, without diagnosis of hypertension (principal)
CPT/HCPCS: 80048

== ENCOUNTER 2020-05-12 09:28 | Outpatient (REF) | payer OTHER, MEDICAID, SELFPAY ==
[2020-05-12 20:03] LABS: HCT 42.9 % (40.0-50.0); HGB 13.8 g/dL (13.5-17.5); MCH 26.8 pg (27.0-33.0); MCHC 32.2 % (32.0-36.0); MCV 83.5 fL (80-95); MPV 12.1 fL (8.0-11.0); Platelet Count 170 10^3/uL (130-400); RBC 5.14 10^6/uL (4.36-5.78); RDW 14.5 % (11.8-14.1); RDW-SD 44.2 fL; WBC 7.37 10^3/uL (4.4-10.8)
[2020-05-12 20:27] LABS: ALT 34 U/L (16-63); AST 22 U/L (15-37); Alkaline Phosphatase 107 U/L (46-116); Anion Gap 4.6 mmol/L (3-11); BUN 12 mg/dL (7-18); Bilirubin, Total 0.6 mg/dL (0.2-1.0); CO2 30.4 mmol/L (21.0-32.0); CREATININE 0.95 mg/dL (0.70-1.30); Calcium 9.1 mg/dL (8.5-10.1); Calculated LDL 59 mg/dL (<100); Chloride 108 mmol/L (98-107); Cholesterol 111 mg/dL (<200); Glucose 97 mg/dL (74-106); HDL Cholesterol 37 mg/dL (40-60); Potassium 4.2 mmol/L (3.5-5.1); Sodium 143 mmol/L (136-145); Total Protein 7.4 g/dL (6.4-8.2); Triglyceride 75 mg/dL (<150)
[2020-05-12 21:22] LABS: Hemoglobin A1C 6.1 % (<5.7)
== END 2020-05-12 09:48 ==
LOC: NCHCN 09:28
PROVIDERS: PCP Family Medicine; Visit Provider Family Medicine
DX: R73.03 Prediabetes (principal); E78.5 Hyperlipidemia, unspecified; E87.0 Hyperosmolality and hypernatremia; Q61.3 Polycystic kidney, unspecified
CPT/HCPCS: 80053; 80061; 85027; 83036

== ENCOUNTER → 2020-05-16 10:53 | Outpatient (BNVA) | payer OTHER, MEDICAID, SELFPAY | PROVIDERS: PCP Family Medicine; Visit Provider Orthopaedic Surgery | DX: Z47.1 Aftercare following joint replacement surgery; Z96.642 Presence of left artificial hip joint; Z96.641 Presence of right artificial hip joint | CPT/HCPCS: 99213 ==

== ENCOUNTER 2020-06-19 21:11 | Outpatient (REF) | payer OTHER, MEDICAID, SELFPAY ==
[2020-06-19 19:16] LABS: Anion Gap 6.6 mmol/L (3-11); BUN 22 mg/dL (7-18); CO2 31.4 mmol/L (21.0-32.0); CREATININE 1.22 mg/dL (0.70-1.30); Calcium 9.7 mg/dL (8.5-10.1); Chloride 103 mmol/L (98-107); Estimated GFR 59.07 (mL/min/1.73m2); Glucose 112 mg/dL (74-106); Potassium 3.1 mmol/L (3.5-5.1); Sodium 141 mmol/L (136-145); TSH (W/Ref FT4) 0.38 uIU/mL (0.36-3.74)
== END 2020-06-19 21:31 ==
LOC: NCHCN 21:11
PROVIDERS: PCP Family Medicine; Visit Provider Family Medicine
DX: I10 Essential (primary) hypertension (principal); R63.5 Abnormal weight gain
CPT/HCPCS: 80048; 84443

== ENCOUNTER 2020-08-15 01:46 | Outpatient (CLI) | payer OTHER, MEDICAID, SELFPAY ==
--- NOTE | 2020-08-15 15:15 | DI.CTLCSR_ITS ---
EXAM: CT CHEST LUNG CANCER SCREEN CLINICAL HISTORY: SCREENING FOR LUNG CA,CURRENT SMOKER, Z72.0 TECHNIQUE: Imaging Protocol: Axial computed tomography images with coronal and sagittal reformatted images were created and reviewed COMPARISON: CT CT CHEST LUNG CANCER SCREEN from 07/16/2019 FINDINGS: Tracheobronchial tree: Patent where visualized. Mediastinum and Diana: No dominant adenopathy or fluid collection. Pulmonary parenchyma: No consolidation or dominant measurable mass. Mild emphysematous changes. Lung Nodules: Stable 4 millimeter nodule above the right diaphragm.. Pleura: No effusion or pneumothorax. Heart: The heart is not dilated. Mild coronary artery calcifications are seen. Aorta: Thoracic aorta non-dilated. Upper abdomen: Small hiatal hernia. Cysts are again noted at the upper pole of the left kidney. Th e spleen is normal in size. The the adrenals, pancreas and gallbladder as well as visualized portion s of the liver are unremarkable. Bones: Degenerative disc changes. Soft Tissues: Unremarkable. IMPRESSION: Mild emphysematous changes. Stable 4 millimeter right basilar pulmonary nodule. Category Lung RADS Cat 2 - Benign Appearance / Behavior: Nodules with a very low likelihood of becomi ng a clinically active cancer due to size or lack of growth Lung-RADS 1.0 CATEGORIES: Category 0 - Prior chest CT exam(s) being located for comparison. Category 1 - Annual screening in 12 months. No nodules or definitely benign nodules. Category 2 - Annual screening in 12 months. Benign appearance. Nodules with low likelihood of becomin g active cancer. Category 3 - 6-month follow-up. Probably benign. Short-term follow-up suggested. Nodules with low lik elihood of becoming active cancer. Category 4A - 3-month follow-up and CT/PET if >8 mm in size. Suspicious finding. Findings which requi re additional testing. Category 4B - Findings which require additional testing and tissue sampling. Suspicious finding. C Added to Any of the Above - History of prior lung cancer screening. S Added to Any of the Above - Significant unexpected other finding. RADIATION DOSE DELIVERED: 92.39mGy.cm Total DLP DATA REPOSITORY: All CT scans at this facility are submitted to the National Radiology Data Registry (NRDR) Dose Index Registry (DIR) with the [employer] (ACR). RADIATION OPTIMIZATION: All CT scans at this facility use at least one of these dose optimization te chniques: automated exposure control; mA and/or kV adjustment per patient size (includes targeted exa ms where dose is matched to clinical indication); or iterative reconstruction.
== END 2020-08-15 02:06 ==
PROVIDERS: PCP Family Medicine; Visit Provider Family Medicine
DX: R91.1 Solitary pulmonary nodule (principal); F17.210 Nicotine dependence, cigarettes, uncomplicated
CPT/HCPCS: G0297

== ENCOUNTER 2021-03-30 02:44 | Outpatient (CLI) | payer OTHER, MEDICAID, SELFPAY ==
[2021-03-30 12:40] LABS: Source Nasal/Nares
[2021-03-30 13:46] LABS: COVID-19 PCR Negative (Negative)
== END 2021-03-30 02:45 | disposition home or self-care (01) ==
LOC: LBO 02:44
PROVIDERS: PCP Family Medicine; Visit Provider Surgery
DX: Z20.822 Contact with and (suspected) exposure to COVID-19 (principal); Z01.818 Encounter for other preprocedural examination
CPT/HCPCS: 87635

== ENCOUNTER 2021-07-09 09:18 | Outpatient (REF) | payer MEDICARE, MEDICAID, SELFPAY ==
[2021-07-09 15:32] LABS: HCT 42.5 % (40.0-50.0); HGB 13.7 g/dL (13.5-17.5); MCH 27.1 pg (27.0-33.0); MCHC 32.2 % (32.0-36.0); MCV 84.2 fL (80-95); Platelet Count 189 10^3/uL (130-400); RBC 5.05 10^6/uL (4.36-5.78); RDW 14.6 % (11.8-14.1); RDW-SD 44.6 fL; WBC 7.91 10^3/uL (4.4-10.8)
[2021-07-09 15:42] LABS: ALT 31 U/L (16-63); AST 18 U/L (15-37); Alkaline Phosphatase 114 U/L (46-116); Anion Gap 8.8 mmol/L (3-11); BUN 15 mg/dL (7-18); Bilirubin, Total 0.7 mg/dL (0.2-1.0); CO2 28.2 mmol/L (21.0-32.0); Calcium 9.2 mg/dL (8.5-10.1); Chloride 108 mmol/L (98-107); Glucose 100 mg/dL (74-106); Potassium 4.6 mmol/L (3.5-5.1); Sodium 145 mmol/L (136-145); Total Protein 7.2 g/dL (6.4-8.2)
[2021-07-09 16:52] LABS: Hemoglobin A1C 6.1 % (<5.7)
== END 2021-07-09 09:19 | disposition home or self-care (01) ==
LOC: NCHCN 09:18
PROVIDERS: PCP Family Medicine; Visit Provider Family Medicine
DX: R73.03 Prediabetes (principal); I10 Essential (primary) hypertension
CPT/HCPCS: 80053; 85027; 83036

== ENCOUNTER 2021-08-16 02:38 | Outpatient (CLI) | payer MEDICARE, MEDICAID, SELFPAY ==
--- NOTE | 2021-08-16 | DI.CTLCSR_ITS ---
Exam(s) CT CHEST LUNG CANCER SCREEN EXAM: CT CHEST LUNG CANCER SCREEN CLINICAL HISTORY: SCREENING FOR LUNG CA,SMOKER, F17.210. TECHNIQUE: Imaging Protocol: Low Dose Technique CONTRAST MATERIAL: None COMPARISON: CT CT CHEST LUNG CANCER SCREEN from 08/15/2020 FINDINGS: CHEST: LUNGS: Previously described small 4 millimeter nodule in the right lung base just above the hemidiaph ragm remains unchanged.. This is probably a small granuloma. No new nodules evident in either lung f ield. No new infiltrates nor pleural effusions. No significant focal findings in the trachea and main stem bronchi. MEDIASTINUM: There is no obvious hilar nor mediastinal adenopathy. CARDIAC: Heart size is normal. There is no pericardial effusion.Caliber of the thoracic aorta is wit hin normal limits. OTHER: Moderate size hiatal hernia is again noted. Large cysts again noted in the partially included left kidney. OSSEOUS: No significant osseous lesions.. IMPRESSION: 1. Stable unchanged benign-appearing 4 millimeter right lung base nodule. No new additional nodules n or pleural effusions nor infiltrates. 2. No new intrathoracic adenopathy. 3. Lung RADS Cat 2 - Benign Appearance / Behavior: Nodules with a very low likelihood of becoming a c linically active cancer due to size or lack of growth Lung-RADS 1.0 CATEGORIES: Category 0 - Prior chest CT exam(s) being located for comparison. Category 1 - Annual screening in 12 months. No nodules or definitely benign nodules. Category 2 - Annual screening in 12 months. Benign appearance. Nodules with low likelihood of becomin g active cancer. Category 3 - 6-month follow-up. Probably benign. Short-term follow-up suggested. Nodules with low lik elihood of becoming active cancer. Category 4A - 3-month follow-up and CT/PET if >8 mm in size. Suspicious finding. Findings which requi re additional testing. Category 4B - Findings which require additional testing and tissue sampling. Modifier S- Potentially clinically significant findings (non lung cancer) RADIATION DOSE DELIVERED: 92.48mGy.cm Total DLP 2.21mGy CTDIvol DATA REPOSITORY: All CT scans at this facility are submitted to the National Radiology Data Registry (NRDR) Dose Index Registry (DIR) with the [employer] (ACR). RADIATION OPTIMIZATION: All CT scans at this facility use at least one of these dose optimization te chniques: automated exposure control; mA and/or kV adjustment per patient size (includes targeted exa ms where dose is matched to clinical indication); or iterative reconstruction.
== END 2021-08-16 02:58 ==
PROVIDERS: PCP Family Medicine; Visit Provider Family Medicine
DX: F17.210 Nicotine dependence, cigarettes, uncomplicated (principal); Z12.2 Encounter for screening for malignant neoplasm of respiratory organs; R91.1 Solitary pulmonary nodule
CPT/HCPCS: 71271

== ENCOUNTER 2022-08-27 01:54 | Outpatient (CLI) | payer MEDICARE, MEDICAID, SELFPAY ==
--- NOTE | 2022-08-27 | DI.CTLCSR_ITS ---
Exam(s) CT CHEST LUNG CANCER SCREEN EXAM: CT CHEST LUNG CANCER SCREEN CLINICAL HISTORY: SCREENING FOR LUNG CA, CURRENT SMOKER, F17.210 TECHNIQUE: Imaging Protocol: Axial computed tomography images with coronal and sagittal reformatted images were created and reviewed COMPARISON: CT CT CHEST LUNG CANCER SCREEN from 07/16/[address] ABDOMEN WO/W from 10/06/[address] CHEST LUNG CANCER SCREEN from 08/15/[address] CHEST LUNG CANCER SCREEN from 08/16/2021 FINDINGS: Tracheobronchial tree: Patent where visualized. Pulmonary parenchyma: No consolidation or dominant measurable mass. Mild emphysematous changes are pr esent in the lungs. Lung Nodules: The 4 mm nodule just above the right hemidiaphragm in the right lower lobe is unchanged . Mediastinum and Diana: No dominant adenopathy or fluid collection. The esophagus is unremarkable.There is a small hiatal hernia. Thyroid gland: Unremarkable. Lymph nodes: Unremarkable. Pleura: No effusion or pneumothorax. Heart: The heart is not dilated. Coronary artery calcification is present. No pericardial effusion. Aorta: Thoracic aorta non-dilated.Mild atherosclerosis. Upper abdomen: The cyst in the superior pole of the left kidney is again noted. Soft Tissues: Unremarkable. Bones: Within normal limits. There is a bone island in the C6 vertebral body. IMPRESSION: Stable 4 mm right lower lobe pulmonary nodule. Lung RADS Cat 2 - Benign Appearance / Behavior: Nodules with a very low likelihood of becoming a clin ically active cancer due to size or lack of growth Lung-RADS 1.0 CATEGORIES: Category 0 - Prior chest CT exam(s) being located for comparison. Category 1 - Annual screening in 12 months. No nodules or definitely benign nodules. Category 2 - Annual screening in 12 months. Benign appearance. Nodules with low likelihood of becomin g active cancer. Category 3 - 6-month follow-up. Probably benign. Short-term follow-up suggested. Nodules with low lik elihood of becoming active cancer. Category 4A - 3-month follow-up and CT/PET if >8 mm in size. Suspicious finding. Findings which requi re additional testing. Category 4B - Findings which require additional testing and tissue sampling. Suspicious finding. Category 4X - Category 3 or 4 nodules with additional features or imaging findings that increases the suspicion of malignancy. Modifier S- Potentially clinically significant finding. (Non lung cancer) RADIATION DOSE DELIVERED: 87.32mGy.cm Total DLP 87.32mGy.cmTotal DLP DATA REPOSITORY: All CT scans at this facility are submitted to the National Radiology Data Registry (NRDR) Dose Index Registry (DIR) with the [employer] (ACR). RADIATION OPTIMIZATION: All CT scans at this facility use at least one of these dose optimization te chniques: automated exposure control; mA and/or kV adjustment per patient size (includes targeted exa ms where dose is matched to clinical indication); or iterative reconstruction.
== END 2022-08-27 02:14 ==
LOC: DI 01:54
PROVIDERS: PCP Family Medicine; Visit Provider Family Medicine
DX: F17.210 Nicotine dependence, cigarettes, uncomplicated (principal); Z12.2 Encounter for screening for malignant neoplasm of respiratory organs; R91.1 Solitary pulmonary nodule
CPT/HCPCS: 71271

== ENCOUNTER 2022-09-04 17:58 | Outpatient (REF) | payer MEDICARE, MEDICAID, SELFPAY ==
[2022-09-04 16:25] LABS: ALT 51 U/L (16-63); AST 37 U/L (15-37); Albumin 4.2 g/dL (3.4-5.0); Alkaline Phosphatase 103 U/L (46-116); Anion Gap 6.4 mmol/L (3-11); BUN 16 mg/dL (7-18); CO2 27.6 mmol/L (21.0-32.0); CREATININE 1.3 mg/dL (0.70-1.30); Calcium 9.6 mg/dL (8.5-10.1); Chloride 108 mmol/L (98-107); Glucose 116 mg/dL (74-106); Potassium 4.3 mmol/L (3.5-5.1); Sodium 142 mmol/L (136-145); Total Protein 7.6 g/dL (6.4-8.2)
[2022-09-05 14:47] LABS: Hemoglobin A1C 5.9 % (<5.7)
== END 2022-09-04 17:59 | disposition home or self-care (01) ==
LOC: NCHCN 17:58
PROVIDERS: PCP Family Medicine; Visit Provider Family Medicine
DX: I10 Essential (primary) hypertension (principal); R73.03 Prediabetes; Q61.2 Polycystic kidney, adult type
CPT/HCPCS: 80053; 83036

== ENCOUNTER 2022-12-25 10:44 | Outpatient (REF) | payer MEDICARE, MEDICAID, SELFPAY ==
[2022-12-25 14:58] LABS: Anion Gap 5.4 mmol/L (3-11); BUN 28 mg/dL (7-18); CO2 32.6 mmol/L (21.0-32.0); CREATININE 1.5 mg/dL (0.70-1.30); Calcium 9.5 mg/dL (8.5-10.1); Chloride 104 mmol/L (98-107); Estimated GFR 49.77 (mL/min/1.73m2); Glucose 116 mg/dL (74-106); NT-proBNP 49 pg/mL (<300); Potassium 3.2 mmol/L (3.5-5.1); Sodium 142 mmol/L (136-145)
== END 2022-12-25 10:45 | disposition home or self-care (01) ==
LOC: NCHCN 10:44
PROVIDERS: PCP Family Medicine; Visit Provider Family Medicine
DX: I10 Essential (primary) hypertension (principal)
CPT/HCPCS: 80048; 83880

== ENCOUNTER 2023-02-28 00:52 | Outpatient (CLI) | payer MEDICARE, MEDICAID, SELFPAY ==
--- NOTE | 2023-02-28 07:15 | DI.US_ITS ---
APPROVED REPORT EXAM: Comprehensive 2D, Doppler, and color-flow Echocardiogram Patient Location: Out-Patient Application Support Developer: Eugenio Day RDMS, RVT Indications: bilat leg edema Other Information Study Quality: Adequate Conclusion Normal left ventricular wall thickness and chamber size. Ejection fraction is 55 to 60%. Wall motio n is normal Normal right ventricular size and systolic function Both atria are normal in size Aortic valve is sclerotic and trileaflet with mild regurgitation. There is no aortic stenosis Mild mitral annular calcification. Trace mitral regurgitation Mildly dilated ascending aorta measuring 3.9 cm Wall motion Left Ventricle The left ventricle is normal size. The left ventricular systolic function is normal. The left ventric ular ejection fraction is within the normal range. There is normal left ventricular wall thickness. T here is normal LV segmental wall motion. There is no ventricular septal defect visualized. LVEF is 55 -60%. Right Ventricle The right ventricle is normal size. Right ventricular systolic function is grossly normal. Unable to assess PA pressure. Atria The left atrium size is normal. The right atrium size is normal. The interatrial septum is intact wit h no evidence for an atrial septal defect. Aortic Valve The Aortic valve is sclerotic. Aortic valve is trileaflet. There is no aortic valvular stenosis. Mild aortic regurgitation. Mitral Valve Mild mitral annular calcification. No evidence of mitral valve stenosis. Trace mitral regurgitation. Tricuspid Valve The tricuspid valve is normal in structure. There is no tricuspid valve stenosis. Trace tricuspid reg urgitation. Pulmonic Valve Pulmonic valve is not well visualized. There is no pulmonic valvular stenosis. Trace pulmonic regurgi tation. Great Vessels The aortic root is normal in size. The ascending aorta is mildly dilated. Aortic arch is not well vis ualized. IVC is normal in size and collapses >50% with inspiration. Pericardium There is no pericardial effusion. 2D Dimensions IVSD d PLAX 0.78 cm M: 0.6-1.2 LV Vol A2C d MOD 84.3 mL LVPW d PLAX 0.78 cm M: 0.6 - 1.2 LV Vol A4C d MOD 128.1 mL LVID d PLAX 5.18 cm M: 4.2 - 5.8 LA vol/ BSA A4C s A-L 29.8 mL/m2 LVDs 3.70 cm M: 2.5 - 4.0 LA Area A4C s MOD 22.94 cm2 Ao Root d 2.99 cm M: 3.1 - 3.7 LV EF A4C MOD 54.6 % Ao Asc Diam d 3.90 cm M: 2.6 - 3.4 LV EF A2C MOD 54.4 % LV EF Teichholz 53.6 % LV EF Biplane MOD 52.8 % LVEF (Osman's) 52.76 % M: 52 - 72 SV 56.11 mL LV Volume 75.40 mL M: 62 - 150 SV Index 23.45 mL/m2 LV Volume Index 31.54 mL/m2 M: 34 - 74 LV Vol Biplane MOD 106.4 mL FS 27.80 % M-Mode TAPSE 1.66 cm (M/F) >1.7 LV Diastology MV E' medial 0.142 (>0.07 m/s) E/A Ratio 0.8 LV E/e MED 5.10 (<14) MV E Vmax 0.73 (0.4-1.3 m/s) MV E' lateral 0.121 (>0.1 m/s) MV A Vmax 0.90 (0.4-1.3 m/s) LV E/e LAT 6.00 (<14) MV E/A Ratio 0.79 MV E/E' medial 5.13 MV E/E' lateral 6.01 Aortic Valve LVOT Area 3.81 cm2 AoV Area Vmax 3.49 cm2 LVOT Vmax 1.39 m/s AoV Area/ BSA (Vmax) 1.46 cm2/m2 LVOT Mean Jw. 0.91 m/s JOVANNY Mean Jw. 3.29 cm2 LVOT Peak Grad 7.7 mmHg JOVANNY Mean Jw. Index 1.38 cm2/m2 LVOT Mean Grad 3.8 mmHg AR PHT 1263 msec LVOT VTI 0.280 m LVOT Diam s 2.20 cm AoV Vmax 1.51 m/s Velocity Ratio 0.92 AoV Mean Jw. 1.05 m/s AoV Peak Grad 9.1 mmHg LVOT SV 106.83 mL AoV Mean Grad 5.0 mmHg AoV VTI 0.317 m AoV Area VTI 3.37 cm2 AoV Area/ BSA (VTI) 1.41 cm/m2 Mitral Valve MV DT 186 (160-240 msec) MV PHT 54 msec MV Area PHT 4.07 cm2 MV VTI 0.301 m MV Area VTI 3.55 (4.0-6.0 cm2) Pulmonary Valve PV Vmax 0.70 (0.5-1.5 m/s) RVOT Peak Gr. 1.38 mmHg PV Peak Grad 2.0 mmHg RVOT Mean Gr. 0.70 mmHg PV Mean Grad 1.2 mmHg RVOT VTI 0.132 m PV VTI 0.174 m RVOT Vmax 0.59 m/s
== END 2023-02-28 01:12 ==
LOC: DI 00:53
PROVIDERS: PCP Family Medicine; Visit Provider Family Medicine
DX: R60.0 Localized edema (principal)
CPT/HCPCS: 93306

== ENCOUNTER 2023-08-20 15:35 | Outpatient (REF) | payer MEDICARE, MEDICAID, SELFPAY ==
[2023-08-20 19:15] LABS: Anion Gap 8.3 mmol/L (3-11); BUN 29 mg/dL (7-18); CO2 28.7 mmol/L (21.0-32.0); CREATININE 1.8 mg/dL (0.70-1.30); Calcium 10.1 mg/dL (8.5-10.1); Chloride 106 mmol/L (98-107); Estimated GFR 39.75 (mL/min/1.73m2); Glucose 108 mg/dL (74-106); Potassium 3.5 mmol/L (3.5-5.1); Sodium 143 mmol/L (136-145)
[2023-08-20 19:20] LABS: Hemoglobin A1C 5.9 % (<5.7)
== END 2023-08-20 15:36 | disposition home or self-care (01) ==
LOC: NCHCN 15:35
PROVIDERS: PCP Family Medicine; Visit Provider Family Medicine
DX: R73.03 Prediabetes (principal); I10 Essential (primary) hypertension
CPT/HCPCS: 80048; 83036

== ENCOUNTER → 2023-08-27 02:24 | Outpatient (CLI) | payer MEDICARE, MEDICAID, SELFPAY ==
--- NOTE | 2023-08-27 | DI.US_ITS ---
Exam(s) US RENAL EXAM: US RENAL CLINICAL HISTORY: CKD STAGE 3. TECHNIQUE: Colbert scale, color and spectral Doppler were used. COMPARISON: US US RENAL from 07/27/2019 FINDINGS: Renal size in cm: Right: 10.7. Left: 12.0. Echogenicity: Normal. There is mild thinning of the renal cortices bilaterally. Hydronephrosis: No. Cyst or mass: Bilateral simple renal cysts. The largest is on the left and measures 7.0 x 5.7 x 6.8 cm. No follow-up is recommended. Nephrolithiasis: No. Other findings: None. Bladder:Normal. Ureteral jets: Right: Not visualized on this examination. Left: Visualized and unremarkable. Prevoid vol:197 cc Postvoid vol:0 cc Prostate: 31 cc Renal color flow: Symmetric and within normal limits. IMPRESSION: 1. Mild renal cortical thinning. 2. Simple bilateral renal cysts. 3. Upper limits of normal sized prostate gland. DATA REPOSITORY:
== END ==
PROVIDERS: PCP Family Medicine; Visit Provider Family Medicine
DX: N18.30 Chronic kidney disease, stage 3 unspecified (principal); N28.1 Cyst of kidney, acquired; N40.0 Benign prostatic hyperplasia without lower urinary tract symptoms
CPT/HCPCS: 76770

== ENCOUNTER 2023-09-18 11:34 | Outpatient (REF) | payer MEDICARE, MEDICAID, SELFPAY ==
[2023-09-18 16:08] LABS: HGB 13.3 g/dL (13.5-17.5); MCH 27.5 pg (27.0-33.0); MCHC 32.4 % (32.0-36.0); MCV 85 fL (80-95); MPV 12.1 fL (8.0-11.0); Platelet Count 192 10^3/uL (130-400); RBC 4.83 10^6/uL (4.36-5.78); RDW 14.1 % (11.8-14.1); RDW-SD 43.6 fL; WBC 7.55 10^3/uL (4.4-10.8)
[2023-09-18 16:41] LABS: Iron 69 ug/dL (65-175); Total Iron Binding Capacity 414 ug/dL (250-450); Transferrin Sat 17 % (20-55)
[2023-09-18 16:48] LABS: Anion Gap 7.5 mmol/L (3-11); BUN 25 mg/dL (7-18); CO2 30.5 mmol/L (21.0-32.0); CREATININE 1.6 mg/dL (0.70-1.30); Calcium 10.1 mg/dL (8.5-10.1); Chloride 107 mmol/L (98-107); Estimated GFR 45.78 (mL/min/1.73m2); Ferritin 31 ng/mL (26-388); Glucose 91 mg/dL (74-106); Potassium 4.4 mmol/L (3.5-5.1); Sodium 145 mmol/L (136-145)
[2023-09-18 17:00] LABS: Vitamin D 25 Total 69.9 ng/mL (30-100)
[2023-09-18 22:15] LABS: Parathyroid Hormone,Intact 45 pg/mL (19-88)
== END 2023-09-18 11:35 | disposition home or self-care (01) ==
LOC: NCHCN 11:34
PROVIDERS: PCP Family Medicine; Visit Provider Family Medicine
DX: N18.30 Chronic kidney disease, stage 3 unspecified (principal)
CPT/HCPCS: 80048; 82306; 85027; 82728; 83540; 83550; 83970

== ENCOUNTER 2024-03-11 13:49 | Outpatient (REF) | payer MEDICARE, MEDICAID, SELFPAY ==
[2024-03-11 15:43] LABS: Anion Gap 10.4 mmol/L (3-11); BUN 15 mg/dL (7-18); CO2 25.6 mmol/L (21.0-32.0); CREATININE 1.4 mg/dL (0.70-1.30); Calcium 9.5 mg/dL (8.5-10.1); Chloride 108 mmol/L (98-107); Estimated GFR 53.74 (mL/min/1.73m2); Glucose 89 mg/dL (74-106); Potassium 4.5 mmol/L (3.5-5.1); Sodium 144 mmol/L (136-145)
== END 2024-03-11 13:50 | disposition home or self-care (01) ==
LOC: NCHCN 13:49
PROVIDERS: PCP Family Medicine; Visit Provider Family Medicine
DX: N18.30 Chronic kidney disease, stage 3 unspecified (principal)
CPT/HCPCS: 80048

== ENCOUNTER 2024-05-13 02:28 | Outpatient (CLI) | payer MEDICARE, MEDICAID, SELFPAY ==
--- NOTE | 2024-05-13 15:13 | DI.CTLCSR_ITS ---
Exam(s) CT CHEST LUNG CANCER SCREEN EXAM: CT CHEST LUNG CANCER SCREEN CLINICAL HISTORY: SCREENING FOR LUNG CANCER, F17.210, CURRENT SMOKER. TECHNIQUE: Imaging Protocol: Low Dose Technique CONTRAST MATERIAL: None COMPARISON: CT CT ABDOMEN WO/W from 10/06/[address] CHEST LUNG CANCER SCREEN from 08/27/2022 FINDINGS: CHEST: LUNGS: There are no new ominous pulmonary nodules. Previously described right lung base nodule just a conrad the right hemidiaphragm again noted measuring 4-5 mm and appearing partially calcified most prob ably a granuloma. This nodule is also unchanged from the uppermost images of an abdominal CT scan pe rformed 10/06/2019.. There are no confluent infiltrates nor pleural effusions. No findings in the t rachea and mainstem bronchi. MEDIASTINUM: There is no obvious hilar nor mediastinal adenopathy. Visualized thyroid appears unrema rkable. CARDIAC: Heart size upper normal. No pericardial effusion. Caliber of thoracic aorta is upper deven l.Caliber of the thoracic aorta is within normal limits. OTHER: Large cystic structure in the upper left abdomen is again noted, partially included in the fie ld of view. This is posterior to the nonenlarged spleen. This is shown to be the largest of many cy sts in the left kidney, as seen on CT scan of 2019. OSSEOUS: No significant osseous lesions.. IMPRESSION: 1. Stable benign-appearing 4-5 millimeter nodule in the right lung base. No new significant focal pu lmonary findings. 2. No pleural effusions. 3. Lung RADS Cat 1 - Negative: No nodules and definitely benign nodules Lung-RADS 1.0 CATEGORIES: Category 0 - Prior chest CT exam(s) being located for comparison. Category 1 - Annual screening in 12 months. No nodules or definitely benign nodules. Category 2 - Annual screening in 12 months. Benign appearance. Nodules with low likelihood of becomin g active cancer. Category 3 - 6-month follow-up. Probably benign. Short-term follow-up suggested. Nodules with low lik elihood of becoming active cancer. Category 4A - 3-month follow-up and CT/PET if >8 mm in size. Suspicious finding. Findings which requi re additional testing. Category 4B - Findings which require additional testing and tissue sampling. Category 4X - Category 3 or 4 nodules with additional features or imaging findings that increases the suspicion of malignancy. Modifier S- Potentially clinically significant findings (non lung cancer) RADIATION DOSE DELIVERED: 123.55mGy.cm Total DLP DATA REPOSITORY: All CT scans at this facility are submitted to the National Radiology Data Registry (NRDR) Dose Index Registry (DIR) with the [employer] (ACR). RADIATION OPTIMIZATION: All CT scans at this facility use at least one of these dose optimization te chniques: automated exposure control; mA and/or kV adjustment per patient size (includes targeted exa ms where dose is matched to clinical indication); or iterative reconstruction.
== END 2024-05-13 02:48 ==
LOC: DI 02:28
PROVIDERS: PCP Family Medicine; Visit Provider Family Medicine
DX: F17.210 Nicotine dependence, cigarettes, uncomplicated (principal); Z12.2 Encounter for screening for malignant neoplasm of respiratory organs; R91.8 Other nonspecific abnormal finding of lung field
CPT/HCPCS: 71271

== ENCOUNTER 2024-11-19 13:19 | Outpatient (REF) | payer MEDICARE, MEDICAID, SELFPAY ==
[2024-11-19 15:48] LABS: ALT 33 U/L (16-63); AST 21 U/L (15-37); Alkaline Phosphatase 118 U/L (46-116); Anion Gap 9.6 mmol/L (3-11); BUN 14 mg/dL (7-18); Bilirubin, Total 0.7 mg/dL (0.2-1.0); CO2 26.4 mmol/L (21.0-32.0); CREATININE 1.2 mg/dL (0.70-1.30); Calcium 9.7 mg/dL (8.5-10.1); Calculated LDL 58 mg/dL (<100); Chloride 109 mmol/L (98-107); Cholesterol 126 mg/dL (<200); Estimated GFR 64.25 (mL/min/1.73m2); Glucose 101 mg/dL (74-106); HDL Cholesterol 40 mg/dL (>or=40); Potassium 4.3 mmol/L (3.5-5.1); Sodium 145 mmol/L (136-145); Total Protein 7.4 g/dL (6.4-8.2); Triglyceride 142 mg/dL (<150)
[2024-11-19 15:51] LABS: Hemoglobin A1C 5.9 % (<5.7)
[2024-11-19 16:15] LABS: Microalb ug/mg Crea 58.8 ug/mg Cr
== END 2024-11-19 13:20 | disposition home or self-care (01) ==
LOC: NCHCN 13:19
PROVIDERS: PCP Family Medicine; Visit Provider Family Medicine
DX: I10 Essential (primary) hypertension (principal); R73.03 Prediabetes
CPT/HCPCS: 80053; 80061; 82043; 82570; 83036

== ENCOUNTER 2024-12-10 01:44 | Outpatient (CLI) | payer MEDICARE, MEDICAID, SELFPAY ==
[2024-12-10] MEDS: Levalbuterol HFA 15 GM INH 4 PUFF IH (11:12)
[2024-12-10] MEDS: Inhaler, Assist Device 1 EACH MC (11:12)
--- NOTE | 2025-01-06 11:19 | W.PFT ---
Date of service: 12/10/24 Time of Service: 10:03 Pulmonary Function Test Result Indications: COPD Interpretation Spirometry: No airflow limitation. No bronchodilator response Lung Volumes: Normal lung volumes Diffusion Capacity: Reduced diffusion Airway Pressure: Normal aireways resistance Impression Decreased diffusion. Clinical Correlation therefore is recommended.
== END 2024-12-10 01:45 | disposition home or self-care (01) ==
LOC: RT 01:44
PROVIDERS: PCP Family Medicine; Visit Provider Student in an Organized Health Care Education/Training Program
DX: J44.9 Chronic obstructive pulmonary disease, unspecified (principal)
CPT/HCPCS: 94060; 94726; 94729

== ENCOUNTER 2024-12-27 10:59 | Outpatient (REF) | payer MEDICARE, MEDICAID, SELFPAY ==
[2024-12-28 21:00] LABS: Microalb ug/mg Crea 59.1 ug/mg Cr
== END 2024-12-27 11:00 | disposition home or self-care (01) ==
LOC: NCHCN 10:59
PROVIDERS: PCP Family Medicine; Visit Provider Family Medicine
DX: I10 Essential (primary) hypertension (principal)
CPT/HCPCS: 82043; 82570

== ENCOUNTER 2025-02-09 08:35 | Outpatient (REF) | payer MEDICARE, MEDICAID, SELFPAY ==
[2025-02-09 16:53] LABS: BUN 15 mg/dL (7-18); CREATININE 1.3 mg/dL (0.70-1.30); Calcium 9.4 mg/dL (8.5-10.1); Chloride 109 mmol/L (98-107); Estimated GFR 58.37 (mL/min/1.73m2); Glucose 109 mg/dL (74-106); Potassium 4.3 mmol/L (3.5-5.1); Sodium 145 mmol/L (136-145)
== END 2025-02-09 08:36 | disposition home or self-care (01) ==
LOC: NCHCN 08:35
PROVIDERS: PCP Family Medicine; Visit Provider Family Medicine
DX: I10 Essential (primary) hypertension (principal)
CPT/HCPCS: 80048